=== PATIENT | male | born 1965 | race Two or more races ===

== ENCOUNTER 2019-01-15 20:26 | Inpatient (IN) | payer SELFPAY ==
[~2019-01-15] VITALS: Ht 177.8 cm; Wt 73.0 kg
[2019-01-15 20:47] LABS: BILIRUBIN,URINE NEGATIVE (NEG); CLARITY,URINE CLEAR; COLOR,URINE YELLOW; NITRITE,URINE NEGATIVE (NEG); PROTEIN,URINE 100 mg/dL (NEG-TRACE); UROBILINOGEN,URINE 0.2 mg/dL (0.2 mg/dL)
[2019-01-15 20:54] LABS: AMPHETAMINE/METHAMPHETAMINE NEG (NEG); BARBITURATES NEG (NEG); BENZODIAZEPINES NEG (NEG); CANNABINOIDS NEG (NEG); COCAINE NEG (NEG); METHADONE NEG (NEG); OPIATES NEG (NEG); PHENCYCLIDINE NEG (NEG)
[2019-01-15 21:04] LABS: BACTERIA,URINE 0 /HPF (0-FEW); WBC,URINE 0 /HPF (0-4)
[2019-01-15] MEDS ORDERED: FAMOTIDINE 20 MG/2 ML VIAL IVP ONE (21:15)
[2019-01-15] MEDS ORDERED: IV NORMAL SALINE 1000ML BAG 1,000 ML IV ONE (21:15)
[2019-01-15] MEDS ORDERED: ONDANSETRON PF 4 MG/2 ML VIAL. IV ONE (21:15)
[2019-01-15] MEDS ORDERED: KETOROLAC 30 MG/ML VIAL. IV ONE (21:15)
[2019-01-15 21:27] LABS: BASO # 0.1 x10^3/uL (0.0-0.2); BASO % 3 % (0-3); EOS # 0.1 x10^3/uL (0.0-0.7); EOS % 3 % (0-3); HEMATOCRIT 25.7 % (39.0-53.0); HEMOGLOBIN 8.5 g/dL (13.0-17.5); LYMPH # 1.6 x10^3/uL (1.0-4.8); LYMPH % 35 % (24-48); MEAN CORPUSCULAR HEMOGLOBIN 30 pg (25-35); MEAN CORPUSCULAR HGB CONC 33 g/dL (31-37); MEAN CORPUSCULAR VOLUME 92 fL (79-100); MONO # 0.4 x10^3/uL (0.0-1.1); MONO % 9 % (0-9); NEUT # 2.3 x10^3/uL (1.8-7.7); NEUT % 50 % (31-73); PLATELET COUNT 99 x10^3/uL (140-400); RED CELL DISTRIBUTION WIDTH 17.6 % (11.5-14.5); WHITE BLOOD COUNT 4.7 x10^3/uL (4.0-11.0)
[2019-01-15 21:36] LABS: CALCIUM 7.9 mg/dL (8.5-10.1); CREATININE 0.7 mg/dL (0.7-1.3); GFR 118.9; POTASSIUM 3.6 mmol/L (3.5-5.1)
[2019-01-15 21:42] LABS: ALBUMIN 2.8 g/dL (3.4-5.0); ALBUMIN/GLOBULIN RATIO 0.6 (1.0-1.7); MAGNESIUM 1.6 mg/dL (1.8-2.4); TOTAL BILIRUBIN 0.4 mg/dL (0.2-1.0); TOTAL PROTEIN 7.3 g/dL (6.4-8.2)
[2019-01-15] MEDS ORDERED: MULTIVIT INFUSN,ADULT 4,VIT K 10 ML, THIAMINE INJ 100 MG, FOLIC ACID INJ 1 MG in IV NOR... IV ONE (22:15)
[2019-01-15] MEDS ORDERED: ONDANSETRON PF 4 MG/2 ML VIAL. IV PRN (22:15)
--- NOTE | 2019-01-15 22:16 | PHYS DOC ---
Past Medical History Past Medical History: Pancreatitis Past Surgical History: Other Additional Past Surgical Histo: LEFT KNEE SURGERY Additional Information: Nonsmoker Alcohol Use: Heavy Drug Use: None Adult General Chief Complaint Chief Complaint: ABDOMINAL PAIN HPI HPI 53-year-old male presents via EMS after patient walked to the fire station reporting left upper quadrant abdominal pain. Patient reports he has had this pain for the last 3 weeks. Reports history of pancreatitis. Patient does report alcohol consumption. Reports he drinks approximately 3x 16 oz beers daily. Denies history of delirium tremens. Reports has been drinking like this for last 8 years. Denies nausea or vomiting. Denies trauma. Review of Systems Review of Systems Constitutional: Denies fever or chills Eyes: Denies redness or eye pain HENT: Denies nasal congestion or sore throat Respiratory: Denies cough or shortness of breath Cardiovascular: Denies chest pain or palpitations GI: Denies nausea or vomiting; reports abdominal pain : Denies dysuria or hematuria Musculoskeletal: Denies back pain or joint pain Integument: Denies rash or skin lesions Neurologic: Denies headache, focal weakness or sensory changes Complete systems were reviewed and found to be within normal limits, except as documented in this note. Current Medications Current Medications Current Medications Medications (Trade) Dose Ordered Sig/Marcia Start Time Stop Time Status Last Admin Dose Admin Famotidine (Pepcid Vial) 20 mg 1X ONCE 01/15/19 21:15 01/15/19 21:16 DC 01/15/19 21:50 20 MG Ketorolac Tromethamine (Toradol 30mg Vial) 15 mg 1X ONCE 01/15/19 21:15 01/15/19 21:16 DC 01/15/19 21:51 15 MG Ondansetron HCl (Zofran) 4 mg 1X ONCE 01/15/19 21:15 01/15/19 21:16 DC 01/15/19 21:50 4 MG Sodium Chloride 1,000 ml @ 1,000 mls/hr 1X ONCE 01/15/19 21:15 01/15/19 22:14 DC 01/15/19 21:49 1,000 MLS/HR Allergies Allergies Allergies Coded Allergies Type Severity Reaction Last Updated Verified No Known Drug Allergies 01/15/19 No Physical Exam Physical Exam Constitutional: Well developed, well nourished, no acute distress, non-toxic appearance HENT: Normocephalic, atraumatic, oropharynx moist Eyes: Conjunctiva normal, no discharge Neck: Normal range of motion, no tenderness, supple Cardiovascular: Heart rate normal, regular rhythm Lungs & Thorax: Bilateral breath sounds clear to auscultation, no wheezing Abdomen: Soft, LUQ tenderness Skin: Warm, dry, no erythema, no rash Back: No tenderness, no CVA tenderness Extremities: No tenderness, ROM intact, no edema Neurologic: Alert and oriented X 3, no focal deficits noted Psychologic: Affect normal, judgement normal, mood normal Current Patient Data Vital Signs Vital Signs Date Time Temp Pulse Resp B/P (MAP) Pulse Ox O2 Delivery O2 Flow Rate FiO2 01/15/19 20:29 71 16 155/90 (111) 99 Room Air 01/15/19 20:27 98.0 98.0 Lab Values Laboratory Tests Test 01/15/19 20:40 01/15/19 21:21 Urine Collection Type Unknown Urine Color Yellow Urine Clarity Clear Urine pH 6.0 Urine Specific [place] <=1.005 Urine Protein 100 mg/dL (NEG-TRACE) Urine Glucose (UA) Negative mg/dL (NEG) Urine Ketones (Stick) Negative mg/dL (NEG) Urine Blood Moderate (NEG) Urine Nitrite Negative (NEG) Urine Bilirubin Negative (NEG) Urine Urobilinogen Dipstick 0.2 mg/dL (0.2 mg/dL) Urine Leukocyte Esterase Negative (NEG) Urine RBC 3-5 /HPF (0-2) Urine WBC 0 /HPF (0-4) Urine Bacteria 0 /HPF (0-FEW) Urine Opiates Screen Neg (NEG) Urine Methadone Screen Neg (NEG) Urine Barbiturates Neg (NEG) Urine Phencyclidine Screen Neg (NEG) Urine Amphetamine/Methamphetamine Neg (NEG) Urine Benzodiazepines Screen Neg (NEG) Urine Cocaine Screen Neg (NEG) Urine Cannabinoids Screen Neg (NEG) Urine Ethyl Alcohol Pos (NEG) White Blood Count 4.7 x10^3/uL (4.0-11.0) Red Blood Count 2.80 x10^6/uL (4.30-5.70) L Hemoglobin 8.5 g/dL (13.0-17.5) L Hematocrit 25.7 % (39.0-53.0) L Mean Corpuscular Volume 92 fL (79-100) Mean Corpuscular Hemoglobin 30 pg (25-35) Mean Corpuscular Hemoglobin Concent 33 g/dL (31-37) Red Cell Distribution Width 17.6 % (11.5-14.5) H Platelet Count 99 x10^3/uL (140-400) L Neutrophils (%) (Auto) 50 % (31-73) Lymphocytes (%) (Auto) 35 % (24-48) Monocytes (%) (Auto) 9 % (0-9) Eosinophils (%) (Auto) 3 % (0-3) Basophils (%) (Auto) 3 % (0-3) Neutrophils # (Auto) 2.3 x10^3/uL (1.8-7.7) Lymphocytes # (Auto) 1.6 x10^3/uL (1.0-4.8) Monocytes # (Auto) 0.4 x10^3/uL (0.0-1.1) Eosinophils # (Auto) 0.1 x10^3/uL (0.0-0.7) Basophils # (Auto) 0.1 x10^3/uL (0.0-0.2) Sodium Level 144 mmol/L (136-145) Potassium Level 3.6 mmol/L (3.5-5.1) Chloride Level 109 mmol/L (98-107) H Carbon Dioxide Level 21 mmol/L (21-32) Anion Gap 14 (6-14) Blood Urea Nitrogen 13 mg/dL (8-26) Creatinine 0.7 mg/dL (0.7-1.3) Estimated GFR (Cockcroft-Gault) 118.9 BUN/Creatinine Ratio 19 (6-20) Glucose Level 108 mg/dL (70-99) H Calcium Level 7.9 mg/dL (8.5-10.1) L Magnesium Level 1.6 mg/dL (1.8-2.4) L Total Bilirubin 0.4 mg/dL (0.2-1.0) Aspartate Amino Transferase (AST) 33 U/L (15-37) Alanine Aminotransferase (ALT) 20 U/L (16-63) Alkaline Phosphatase 122 U/L (46-116) H Total Protein 7.3 g/dL (6.4-8.2) Albumin 2.8 g/dL (3.4-5.0) L Albumin/Globulin Ratio 0.6 (1.0-1.7) L Lipase 1303 U/L (73-393) H Ethyl Alcohol Level 400 mg/dL (0-10) *H Laboratory Tests 01/15/19 21:21 Laboratory Tests 01/15/19 21:21 EKG EKG @2048 NSR at 66bpm, NO ST elevation, QRS 120ms, QT/QTc 428/451ms Radiology/Procedures Radiology/Procedures [] Course & Med Decision Making Course & Med Decision Making Pertinent Lab studies reviewed. (See chart for details) Patient presents with left upper quadrant abdominal pain which is been ongoing for the last 3 weeks. Denies any nausea or vomiting. Patient does report history of chronic alcohol abuse. Labs obtained and posted to chart. Lipase significantly elevated. Alcohol 400. Pain addressed. IV fluid hydration provided. Banana bag also given. Patient requiring admission for further evaluation and treatment. Discussed with Dr. Melgar (hospitalist) who is in agreement with admission. Discussed findings and plan with patient, who acknowledges understanding and agreement. Dragon Disclaimer Dragon Disclaimer This electronic medical record was generated, in whole or in part, using a voice recognition dictation system. Departure Departure Impression: Primary Impression: Pancreatitis Additional Impression: Alcohol abuse Disposition: ADMITTED INPATIENT Admitting Physician: NETTIE Fournier) Condition: STABLE Referrals: NO PCP (PCP) Problem Qualifiers Primary Impression: Pancreatitis Chronicity: acute Pancreatitis type: alcohol induced Acute pancreatitis complication: unspecified Qualified Codes: K85.20 - Alcohol induced acute pancreatitis without necrosis or infection JEFF PAULINO DO Jan 15, 2019 22:16
--- NOTE | 2019-01-15 22:35 | EKG ---
[facility] [address] [place] [address] Test Date: 2019-01-15 Test Time: 20:48:36 Pat Name: SOBEIDA ROMAN Department: Room: Gender: M Shipping/Receiving Manager: : [id number] Requested By: JEFF PAULINO Order Number: [id number] Reading MD: Measurements Intervals [place] Rate: 66 P: 54 MS: 182 QRS: -14 QRSD: 120 T: 39 QT: 428 QTc: 451 Interpretive Statements SINUS RHYTHM LEFTWARD AXIS NO SPECIFIC ECG ABNORMALITIES RI6.01 No previous ECG available for comparison
[2019-01-15] MEDS: fentaNYL PF VIAL 100 MCG/2 ML VIAL IV PRN (22:40)
[2019-01-15 23:30] VITALS: BP 155/77
[2019-01-16] MEDS: IV NORMAL SALINE 1000ML BAG 1,000 ML IV SCH ×3 (00:23→16:15)
[2019-01-16] MEDS: fentaNYL PF VIAL 100 MCG/2 ML VIAL IV PRN ×5 (00:35→20:40)
[2019-01-16 03:16] VITALS: BP 142/78
--- NOTE | 2019-01-16 04:38 | NUR ---
Pt admitted during the noc. Pt states wanting to go by Fab however pt admitted before under another name; Eric Anderson. Pt states his full name is Fab Reyes Luis Rolons. Pt states having 2 names. Pt continues with complaints of epigastric pain and wanting to eat. Pt informed of NPO status at this time and verbalizes understanding. Pt informed of IV pain medication at this time to control his pain. Pt oriented to room and surroundings. No further complaints at this time.
[2019-01-16 07:47] VITALS: BP 119/62
[2019-01-16] MEDS ORDERED: ONDANSETRON PF 4 MG/2 ML VIAL. IV PRN (08:45)
[2019-01-16] MEDS ORDERED: LABETALOL 20 MG/4 ML DISP.SYRIN. IVP PRN (08:45)
[2019-01-16] MEDS ORDERED: PANTOPRAZOLE IV PUSH 40 MG VIAL. IVP SCH ×2 (09:00→16:30)
[2019-01-16] MEDS ORDERED: MAGNESIUM SULFATE 2GM 50 ML IV ONE (09:00)
--- NOTE | 2019-01-16 10:33 | NUR ---
SS following for discharge planning. SS reviewed pt chart. Pt is self pay pt. HCFS following for self pay status. Pt is from home and is currently on room air. No discharge needs noted at this time. SS will continue to follow for discharge planning.
--- NOTE | 2019-01-16 11:33 | PDOC1 ---
History and Physical Date of Admission Date of Admission DATE: 01/16/19 TIME: 11:27 Identification/Chief Complaint Chief Complaint abd pain, and now BRBPR Source Source: Caregiver, Chart review, Patient History of Present Illness History of Present Illness 53-year-old male, he has the wrong name on file this is Mr. Eric Anderson, very well known to us. Comes in again for another alcoholic pancreatitis episode with alcohol levels 400, low hemoglobin, low electrolytes magnesium 1.6 and calcium 7.9 and now called by RN because of bright red blood per rectum. His lipase is 1303. He still drinks alcohol. Maybe 1 or 2 months ago he had a significant ICU stay because of bright red blood per rectum hemodynamically unstable needing IR intervention stat, egd etc. Supposed to be on Carafate PPI and maybe Aldactone? I still am waiting for home meds. I am consulting GI urgent, check an H&H now Keep nothing by mouth, keep liquids running see the protocol etc. Discussed with RN NO CT abd yet NOn toxic appearing and still can communicate with me Past Medical History GI: GERD, GI bleed, Gastritis Past Surgical History Past Surgical History: Other (RT knee Ia nd D, IR EGD intervention for signif GIB) Family History Family History: No Significant Social History Smoke: No ALCOHOL: heavy Drugs: None Current Problem List Problem List Problems Medical Problems: (1) Alcohol abuse Status: Acute Current Medications Current Medications Current Medications Ondansetron HCl (Zofran) 4 mg 1X ONCE IV Last administered on 01/15/19at 21:50; Start 01/15/19 at 21:15; Stop 01/15/19 at 21:16; Status DC Famotidine (Pepcid Vial) 20 mg 1X ONCE IVP Last administered on 01/15/19at 21:50; Start 01/15/19 at 21:15; Stop 01/15/19 at 21:16; Status DC Ketorolac Tromethamine (Toradol 30mg Vial) 15 mg 1X ONCE IV Last administered on 01/15/19at 21:51; Start 01/15/19 at 21:15; Stop 01/15/19 at 21:16; Status DC Sodium Chloride 1,000 ml @ 1,000 mls/hr 1X ONCE IV Last administered on 01/15/19at 21:49; Start 01/15/19 at 21:15; Stop 01/15/19 at 22:14; Status DC Multivitamins 10 ml/Thiamine HCl 100 mg/Folic Acid 1 mg/Sodium Chloride 1,011.2 ml @ 1,000.088 mls/hr 1X ONCE IV Last administered on 01/15/19at 22:10; Start 01/15/19 at 22:15; Stop 01/15/19 at 23:15; Status DC Ondansetron HCl (Zofran) 4 mg PRN Q8HRS PRN IV NAUSEA/VOMITING; Start 01/15/19 at 22:15; Stop 01/16/19 at 08:38; Status DC Fentanyl Citrate (Fentanyl 2ml Vial) 50 mcg PRN Q2HR PRN IV PAIN Last adminis tered on 01/16/19at 07:59; Start 01/15/19 at 22:15 Sodium Chloride 1,000 ml @ 125 mls/hr Q8H IV Last administered on 01/16/19at 08:03; Start 01/15/19 at 22:15; Stop 01/16/19 at 22:14 Lorazepam (Ativan Inj) 1 mg PRN Q1HR PRN IV For CIWA 8-14; Start 01/15/19 at 22:15 Lorazepam (Ativan Inj) 2 mg PRN Q1HR PRN IV For CIWA 15 or greater; Start 01/15/19 at 22:15 Ondansetron HCl (Zofran) 4 mg PRN Q6HRS PRN IV NAUSEA/VOMITING; Start 01/16/19 at 08:45 Pantoprazole Sodium (PROTONIX VIAL for IV PUSH) 40 mg DAILYAC IVP Last administered on 01/16/19at 10:46; Start 01/16/19 at 09:00 Magnesium Sulfate 50 ml @ 25 mls/hr 1X ONCE IV Last administered on 01/16/19at 10:46; Start 01/16/19 at 09:00; Stop 01/16/19 at 10:59; Status DC Labetalol HCl (Normodyne Iv Push) 10 mg PRN Q2HR PRN IVP HYPERTENSION; Start 01/16/19 at 08:45 Allergies Allergies: Coded Allergies: No Known Drug Allergies (Unverified , 01/15/19) ROS Review of System POS for Red blood per rectum, nausea, no emesis, diarrhea, no fevers, no cp, no soa, rest 14 pt neg Physical Exam General: Alert, Oriented X3, Cooperative, No acute distress HEENT: Atraumatic, PERRLA, EOMI Lungs: Clear to auscultation, Normal air movement Heart: S1S2, RRR, no thrills, no rubs, no gallops, no murmurs Cardiovascular: S1, S2 Abdomen: Normal bowel sounds, Soft, No tenderness, No hepatosplenomegaly, No masses Male Genitals Exam: normal genitalia, normal prostate Rectal Exam: not examined PELVIC: Nml ext genitalia Extremities: No clubbing, No cyanosis, No edema, Normal pulses, No tenderness/swelling Skin: No rashes, No breakdown, No significant lesion Neuro: Normal gait, Normal speech, Strength at 5/5 X4 ext, Normal tone, Sensation intact, Cranial nerves 3-12 NL, Reflexes 2+ Psych/Mental Status: Mental status NL, Mood NL Vitals Vitals Vital Signs Date Time Temp Pulse Resp B/P (MAP) Pulse Ox O2 Delivery O2 Flow Rate FiO2 01/16/19 08:30 18 95 Room Air 01/16/19 07:47 97.9 64 119/62 (81) 97.9 Labs Labs Laboratory Tests Test 01/15/19 20:40 01/15/19 21:21 Urine Collection Type Unknown Urine Color Yellow Urine Clarity Clear Urine pH 6.0 Urine Specific [place] <=1.005 Urine Protein 100 mg/dL (NEG-TRACE) Urine Glucose (UA) Negative mg/dL (NEG) Urine Ketones (Stick) Negative mg/dL (NEG) Urine Blood Moderate (NEG) Urine Nitrite Negative (NEG) Urine Bilirubin Negative (NEG) Urine Urobilinogen Dipstick 0.2 mg/dL (0.2 mg/dL) Urine Leukocyte Esterase Negative (NEG) Urine RBC 3-5 /HPF (0-2) Urine WBC 0 /HPF (0-4) Urine Bacteria 0 /HPF (0-FEW) Urine Opiates Screen Neg (NEG) Urine Methadone Screen Neg (NEG) Urine Barbiturates Neg (NEG) Urine Phencyclidine Screen Neg (NEG) Urine Amphetamine/Methamphetamine Neg (NEG) Urine Benzodiazepines Screen Neg (NEG) Urine Cocaine Screen Neg (NEG) Urine Cannabinoids Screen Neg (NEG) Urine Ethyl Alcohol Pos (NEG) White Blood Count 4.7 x10^3/uL (4.0-11.0) Red Blood Count 2.80 x10^6/uL (4.30-5.70) Hemoglobin 8.5 g/dL (13.0-17.5) Hematocrit 25.7 % (39.0-53.0) Mean Corpuscular Volume 92 fL (79-100) Mean Corpuscular Hemoglobin 30 pg (25-35) Mean Corpuscular Hemoglobin Concent 33 g/dL (31-37) Red Cell Distribution Width 17.6 % (11.5-14.5) Platelet Count 99 x10^3/uL (140-400) Neutrophils (%) (Auto) 50 % (31-73) Lymphocytes (%) (Auto) 35 % (24-48) Monocytes (%) (Auto) 9 % (0-9) Eosinophils (%) (Auto) 3 % (0-3) Basophils (%) (Auto) 3 % (0-3) Neutrophils # (Auto) 2.3 x10^3/uL (1.8-7.7) Lymphocytes # (Auto) 1.6 x10^3/uL (1.0-4.8) Monocytes # (Auto) 0.4 x10^3/uL (0.0-1.1) Eosinophils # (Auto) 0.1 x10^3/uL (0.0-0.7) Basophils # (Auto) 0.1 x10^3/uL (0.0-0.2) Sodium Level 144 mmol/L (136-145) Potassium Level 3.6 mmol/L (3.5-5.1) Chloride Level 109 mmol/L (98-107) Carbon Dioxide Level 21 mmol/L (21-32) Anion Gap 14 (6-14) Blood Urea Nitrogen 13 mg/dL (8-26) Creatinine 0.7 mg/dL (0.7-1.3) Estimated GFR (Cockcroft-Gault) 118.9 BUN/Creatinine Ratio 19 (6-20) Glucose Level 108 mg/dL (70-99) Calcium Level 7.9 mg/dL (8.5-10.1) Magnesium Level 1.6 mg/dL (1.8-2.4) Total Bilirubin 0.4 mg/dL (0.2-1.0) Aspartate Amino Transf (AST/SGOT) 33 U/L (15-37) Alanine Aminotransferase (ALT/SGPT) 20 U/L (16-63) Alkaline Phosphatase 122 U/L (46-116) Total Protein 7.3 g/dL (6.4-8.2) Albumin 2.8 g/dL (3.4-5.0) Albumin/Globulin Ratio 0.6 (1.0-1.7) Lipase 1303 U/L (73-393) Ethyl Alcohol Level 400 mg/dL (0-10) Laboratory Tests Test 01/15/19 20:40 01/15/19 21:21 Urine Collection Type Unknown Urine Color Yellow Urine Clarity Clear Urine pH 6.0 Urine Specific [place] <=1.005 Urine Protein 100 mg/dL (NEG-TRACE) Urine Glucose (UA) Negative mg/dL (NEG) Urine Ketones (Stick) Negative mg/dL (NEG) Urine Blood Moderate (NEG) Urine Nitrite Negative (NEG) Urine Bilirubin Negative (NEG) Urine Urobilinogen Dipstick 0.2 mg/dL (0.2 mg/dL) Urine Leukocyte Esterase Negative (NEG) Urine RBC 3-5 /HPF (0-2) Urine WBC 0 /HPF (0-4) Urine Bacteria 0 /HPF (0-FEW) Urine Opiates Screen Neg (NEG) Urine Methadone Screen Neg (NEG) Urine Barbiturates Neg (NEG) Urine Phencyclidine Screen Neg (NEG) Urine Amphetamine/Methamphetamine Neg (NEG) Urine Benzodiazepines Screen Neg (NEG) Urine Cocaine Screen Neg (NEG) Urine Cannabinoids Screen Neg (NEG) Urine Ethyl Alcohol Pos (NEG) White Blood Count 4.7 x10^3/uL (4.0-11.0) Red Blood Count 2.80 x10^6/uL (4.30-5.70) Hemoglobin 8.5 g/dL (13.0-17.5) Hematocrit 25.7 % (39.0-53.0) Mean Corpuscular Volume 92 fL (79-100) Mean Corpuscular Hemoglobin 30 pg (25-35) Mean Corpuscular Hemoglobin Concent 33 g/dL (31-37) Red Cell Distribution Width 17.6 % (11.5-14.5) Platelet Count 99 x10^3/uL (140-400) Neutrophils (%) (Auto) 50 % (31-73) Lymphocytes (%) (Auto) 35 % (24-48) Monocytes (%) (Auto) 9 % (0-9) Eosinophils (%) (Auto) 3 % (0-3) Basophils (%) (Auto) 3 % (0-3) Neutrophils # (Auto) 2.3 x10^3/uL (1.8-7.7) Lymphocytes # (Auto) 1.6 x10^3/uL (1.0-4.8) Monocytes # (Auto) 0.4 x10^3/uL (0.0-1.1) Eosinophils # (Auto) 0.1 x10^3/uL (0.0-0.7) Basophils # (Auto) 0.1 x10^3/uL (0.0-0.2) Sodium Level 144 mmol/L (136-145) Potassium Level 3.6 mmol/L (3.5-5.1) Chloride Level 109 mmol/L (98-107) Carbon Dioxide Level 21 mmol/L (21-32) Anion Gap 14 (6-14) Blood Urea Nitrogen 13 mg/dL (8-26) Creatinine 0.7 mg/dL (0.7-1.3) Estimated GFR (Cockcroft-Gault) 118.9 BUN/Creatinine Ratio 19 (6-20) Glucose Level 108 mg/dL (70-99) Calcium Level 7.9 mg/dL (8.5-10.1) Magnesium Level 1.6 mg/dL (1.8-2.4) Total Bilirubin 0.4 mg/dL (0.2-1.0) Aspartate Amino Transf (AST/SGOT) 33 U/L (15-37) Alanine Aminotransferase (ALT/SGPT) 20 U/L (16-63) Alkaline Phosphatase 122 U/L (46-116) Total Protein 7.3 g/dL (6.4-8.2) Albumin 2.8 g/dL (3.4-5.0) Albumin/Globulin Ratio 0.6 (1.0-1.7) Lipase 1303 U/L (73-393) Ethyl Alcohol Level 400 mg/dL (0-10) VTE Prophylaxis Ordered VTE Prophylaxis Devices: Contraindicated VTE Pharmacological Prophylaxi: Contraindicated Assessment/Plan Assessment/Plan Bright red blood per rectum History of massive GI bleeding stat EGD, stat IR 1-2 months ago here at [facility] Alcoholic liver disease Elevated alcohol levels 400s on admit Alcoholic pancreatitis with lipase 1303 Hypomagnesemia 1.6 Chronic thrombocytopenia Hypocalcemia/normocalcemia in the background of low albumin Plan:keep nothing by mouth, PPI twice a day Keep IVF Carafate by mouth once a day Stat GI consult H&H now CBC and BMP tomorrow Replace mag Keep telemetry Continue CIWA protocol dw with SOHAIL TURCIOS MD Jan 16, 2019 11:32
[2019-01-16 11:45] VITALS: BP 137/73
[2019-01-16 12:39] LABS: HEMATOCRIT 26.5 % (39.0-53.0); HEMOGLOBIN 8.7 g/dL (13.0-17.5)
--- NOTE | 2019-01-16 12:41 | PDOC2 ---
GI CONSULT Reason For Consult: BRBPR HPI: HPI: Has another chart - [id number]. 53 y/o male who is frequently admitted. Currently intoxicated and giggling. Apparently to ER via EMS after walking to a fire station and reporting abd pain. GI history as below. Current concern is bright red blood in the toilet - he says occurred after stooling and was not present prior to admission. Also c/o upper abd pain. Denies n/v, melena, and hematemesis. H/o alcohol abuse, anemia, encephalopathy, and pancreatitis. He wants to eat. Takes no meds at home. "Three beers." Past workup: CT A/P 09/01/18: corrugated surface contour of the liver which may be seen with cirrhosis, normal spleen, ascites w/ fluid around the GB which also may be secondary to passive venous congestion of the liver related to cirrhosis, diffusely enlarged pancreas, peripancreatic inflammatory change and mesenteric edema is seen, diffuse wall thickening of the stomach and duodenum and segmental wall thickening of the colon (possibly secondary to gastroenteritis and colitis or secondary to pancreatitis or related to edema from cirrhosis and ascites). Head CT 09/16/18: no acute intracranial hemorrhage, moderate generalized cerebral volume loss, low-attenuation in the periventricular white matter is suggestive of chronic small vessel ischemic changes, metallic densities along the right zygoma and right frontal scalp may represent sequela of prior trauma. CT A/P 09/19/18: no acute abnormality. Abd US 09/02/18: hepatic contour irregularity compatible with hepatic cirrhosis, diffuse gallbladder wall thickening (related to liver disease, hypoproteinemia or cholecystitis), no sonographic evidence of cholelithiasis, and ascites EGD 09/03/18: normal esophagus w/o varices, gastritis and recent bleeding but no ulcers, normal duodenum. GES 09/08/18: no delay in gastric emptying is seen. CT A/P 11/02/18: c/w cirrhosis w/ portal hypertension and varices, mild fluid- filled loops of small bowel suggesting an ileus, mildly enlarged pancreas, pericholecystic fluid, may be related to the cirrhosis. Labs 08/2018: Negative Hepatitis A, B, and C. Negative HIV. Iron studies c/w ACD. Normal B12 and retic. Mildly elevated ammonia noted in the past. Peripheral smear 08/2018: mild leukopenia and absolute neutropenia, moderate normochromic normocytic anemia, moderate thrombocytopenia. Bone Marrow Biopsy 08/2018: variable normocellular to mildly hypocellular marrow showing trilineage hematopoiesis, no significant dyspoiesis, and a mild polyclonal plasmacytosis, absent iron stores. The cytopenias in this case are most likely due to cirrhosis and pancreatitis. CT A/P 11/02/18: cirrhosis and portal hypertension w/ varices, mild fluid-filled loops of small bowel suggesting an ileus, mildly enlarged pancreas, pericholecystic fluid. CT A/P 11/15/18: hepatic cirrhosis with upper abdominal collaterals and gastroesophageal varices, gallbladder wall thickening/edema is nonspecific. EGD 11/17/18: w/o varices but w/ mother of all Laverne-Baltazar tears requiring IR embolization. Abd US 12/11/18: sludge noted in the gallbladder with thickening of the gallbladder wall, no definite gallstones, coarse liver consistent with cirrhosis, CBD 3mm. CT A/P 01/08/19: cirrhosis with evidence of portal venous hypertension, no peripancreatic mass. PMH: PMH: right knee hematoma evacuation/I&D FH: Family History: No pertinent hx Social History: ALCOHOL: heavy ROS: GEN: Denies fevers, chills, sweats HEENT: Denies blurred vision, sore throat CV: Denies chest pain RESP: Denies shortness of air, cough GI: Per HPI : Denies hematuria, dysuria ENDO: Denies weight changes NEURO: Denies confusion, dizziness MSK: Denies weakness, joint pain/swelling SKIN: Denies jaundice, pruritus Vitals: Vitals: Vital Signs Date Time Temp Pulse Resp B/P (MAP) Pulse Ox O2 Delivery O2 Flow Rate FiO2 01/16/19 11:45 98.2 66 18 137/73 (94) 98 Room Air 98.2 Labs: Labs: Laboratory Tests Test 01/15/19 20:40 01/15/19 21:21 Urine Collection Type Unknown Urine Color Yellow Urine Clarity Clear Urine pH 6.0 Urine Specific [place] <=1.005 Urine Protein 100 mg/dL (NEG-TRACE) Urine Glucose (UA) Negative mg/dL (NEG) Urine Ketones (Stick) Negative mg/dL (NEG) Urine Blood Moderate (NEG) Urine Nitrite Negative (NEG) Urine Bilirubin Negative (NEG) Urine Urobilinogen Dipstick 0.2 mg/dL (0.2 mg/dL) Urine Leukocyte Esterase Negative (NEG) Urine RBC 3-5 /HPF (0-2) Urine WBC 0 /HPF (0-4) Urine Bacteria 0 /HPF (0-FEW) Urine Opiates Screen Neg (NEG) Urine Methadone Screen Neg (NEG) Urine Barbiturates Neg (NEG) Urine Phencyclidine Screen Neg (NEG) Urine Amphetamine/Methamphetamine Neg (NEG) Urine Benzodiazepines Screen Neg (NEG) Urine Cocaine Screen Neg (NEG) Urine Cannabinoids Screen Neg (NEG) Urine Ethyl Alcohol Pos (NEG) White Blood Count 4.7 x10^3/uL (4.0-11.0) Red Blood Count 2.80 x10^6/uL (4.30-5.70) Hemoglobin 8.5 g/dL (13.0-17.5) Hematocrit 25.7 % (39.0-53.0) Mean Corpuscular Volume 92 fL (79-100) Mean Corpuscular Hemoglobin 30 pg (25-35) Mean Corpuscular Hemoglobin Concent 33 g/dL (31-37) Red Cell Distribution Width 17.6 % (11.5-14.5) Platelet Count 99 x10^3/uL (140-400) Neutrophils (%) (Auto) 50 % (31-73) Lymphocytes (%) (Auto) 35 % (24-48) Monocytes (%) (Auto) 9 % (0-9) Eosinophils (%) (Auto) 3 % (0-3) Basophils (%) (Auto) 3 % (0-3) Neutrophils # (Auto) 2.3 x10^3/uL (1.8-7.7) Lymphocytes # (Auto) 1.6 x10^3/uL (1.0-4.8) Monocytes # (Auto) 0.4 x10^3/uL (0.0-1.1) Eosinophils # (Auto) 0.1 x10^3/uL (0.0-0.7) Basophils # (Auto) 0.1 x10^3/uL (0.0-0.2) Sodium Level 144 mmol/L (136-145) Potassium Level 3.6 mmol/L (3.5-5.1) Chloride Level 109 mmol/L (98-107) Carbon Dioxide Level 21 mmol/L (21-32) Anion Gap 14 (6-14) Blood Urea Nitrogen 13 mg/dL (8-26) Creatinine 0.7 mg/dL (0.7-1.3) Estimated GFR (Cockcroft-Gault) 118.9 BUN/Creatinine Ratio 19 (6-20) Glucose Level 108 mg/dL (70-99) Calcium Level 7.9 mg/dL (8.5-10.1) Magnesium Level 1.6 mg/dL (1.8-2.4) Total Bilirubin 0.4 mg/dL (0.2-1.0) Aspartate Amino Transf (AST/SGOT) 33 U/L (15-37) Alanine Aminotransferase (ALT/SGPT) 20 U/L (16-63) Alkaline Phosphatase 122 U/L (46-116) Total Protein 7.3 g/dL (6.4-8.2) Albumin 2.8 g/dL (3.4-5.0) Albumin/Globulin Ratio 0.6 (1.0-1.7) Lipase 1303 U/L (73-393) Ethyl Alcohol Level 400 mg/dL (0-10) Allergies: Coded Allergies: No Known Drug Allergies (Unverified , 01/15/19) Medications: Current Medications Medications (Trade) Dose Ordered Sig/Marcia Route PRN Reason Start Time Stop Time Status Last Admin Dose Admin Ondansetron HCl (Zofran) 4 mg 1X ONCE IV 01/15/19 21:15 01/15/19 21:16 DC 01/15/19 21:50 Famotidine (Pepcid Vial) 20 mg 1X ONCE IVP 01/15/19 21:15 01/15/19 21:16 DC 01/15/19 21:50 Ketorolac Tromethamine (Toradol 30mg Vial) 15 mg 1X ONCE IV 01/15/19 21:15 01/15/19 21:16 DC 01/15/19 21:51 Sodium Chloride 1,000 ml @ 1,000 mls/hr 1X ONCE IV 01/15/19 21:15 01/15/19 22:14 DC 01/15/19 21:49 Multivitamins 10 ml/Thiamine HCl 100 mg/Folic Acid 1 mg/Sodium Chloride 1,011.2 ml @ 1,000.088 mls/hr 1X ONCE IV 01/15/19 22:15 01/15/19 23:15 DC 01/15/19 22:10 Fentanyl Citrate (Fentanyl 2ml Vial) 50 mcg PRN Q2HR PRN IV PAIN 01/15/19 22:15 01/16/19 07:59 Sodium Chloride 1,000 ml @ 125 mls/hr Q8H IV 01/15/19 22:15 01/16/19 22:14 01/16/19 08:03 Pantoprazole Sodium (PROTONIX VIAL for IV PUSH) 40 mg DAILYAC IVP 01/16/19 09:00 01/16/19 11:27 DC 01/16/19 10:46 Magnesium Sulfate 50 ml @ 25 mls/hr 1X ONCE IV 01/16/19 09:00 01/16/19 10:59 DC 01/16/19 10:46 Imaging: Imaging: - PE: GEN: NAD, smiling, waves to me, laughing HEENT: Atraumatic, PERRL LUNGS: CTAB HEART: RRR ABD: NABS, epigastric to RUQ tenderness EXTREMITY: No edema SKIN: No rashes, no jaundice NEURO/PSYCH: A & O �3 A/P: A/P: Hematochezia Alcohol intoxication Chronic anemia - Hgb 8.3 when last discharged, 8.7 now Chronic abd pain Recurrent pancreatitis -- Back again w/ chronic issues. Extensive GI workup this year as above and in other chart. Ice chips okay. IV PPI ordered. Observe for bleeding. Hgb stable. Will review need for abd imaging w/ Dr. Pavon. MARITZA HORNER Jan 16, 2019 12:41
[2019-01-16] MEDS: SUCRALFATE 1 GM TABLET. PO SCH ×3 (13:41→20:39)
[2019-01-16 15:18] VITALS: BP 143/80
[2019-01-16 19:46] VITALS: BP 151/74
[2019-01-16 23:18] VITALS: BP 140/75
[2019-01-17] MEDS: fentaNYL PF VIAL 100 MCG/2 ML VIAL IV PRN ×4 (02:30→16:25)
[2019-01-17 03:08] VITALS: BP 133/61
[2019-01-17 04:47] LABS: BASO # 0.1 x10^3/uL (0.0-0.2); BASO % 3 % (0-3); EOS # 0.1 x10^3/uL (0.0-0.7); EOS % 3 % (0-3); HEMATOCRIT 22.6 % (39.0-53.0); HEMOGLOBIN 7.5 g/dL (13.0-17.5); LYMPH # 0.6 x10^3/uL (1.0-4.8); LYMPH % 24 % (24-48); MEAN CORPUSCULAR HEMOGLOBIN 30 pg (25-35); MEAN CORPUSCULAR HGB CONC 33 g/dL (31-37); MEAN CORPUSCULAR VOLUME 92 fL (79-100); MONO # 0.4 x10^3/uL (0.0-1.1); MONO % 15 % (0-9); NEUT # 1.5 x10^3/uL (1.8-7.7); NEUT % 55 % (31-73); PLATELET COUNT 54 x10^3/uL (140-400); RED BLOOD COUNT 2.47 x10^6/uL (4.30-5.70); RED CELL DISTRIBUTION WIDTH 17.1 % (11.5-14.5); WHITE BLOOD COUNT 2.6 x10^3/uL (4.0-11.0)
[2019-01-17 07:00] VITALS: BP 139/71
[2019-01-17] MEDS: SUCRALFATE 1 GM TABLET. PO SCH ×4 (08:57→20:14)
[2019-01-17] MEDS ORDERED: MAGNESIUM SULFATE 2GM 50 ML IV ONE (10:00)
[2019-01-17] MEDS: PANTOPRAZOLE 40 MG TABLET.DR. PO SCH ×2 (10:09→16:30)
--- NOTE | 2019-01-17 10:14 | PDOC ---
PROGRESS NOTES Chief Complaint Chief Complaint Bright red blood per rectum History of massive GI bleeding stat EGD, stat IR 1-2 months ago here at [facility] Alcoholic liver disease Elevated alcohol levels 400s on admit Alcoholic pancreatitis with lipase 1303 on admit Hypomagnesemia 1.6 Chronic thrombocytopenia 50s-70s Hypocalcemia/normocalcemia in the background of low albumin History of Present Illness History of Present Illness Lipase down to 600 from 1400 on admit Magnesium still 1.7 despite IV replacement yesterday Hemoglobin dropped to 7.5, platelets down to 59 So far some bright red blood per rectum last night but none this morning I ordered a liquid diet-he ate everything Plan : replace magnesium again Check CBC again tomorrow and later today Watch out for bleeding Mag 2 g now and recheck tomorrow Okay for diet Check alcohol levels-was 400s 2 days ago PT OT when able Keep on telemetry Vitals Vitals Vital Signs Date Time Temp Pulse Resp B/P (MAP) Pulse Ox O2 Delivery O2 Flow Rate FiO2 01/17/19 09:45 Room Air 01/17/19 08:58 97 01/17/19 07:00 97.9 62 18 139/71 (93) 97.9 Physical Exam General: Alert, Oriented X3, Cooperative, No acute distress Heart: Regular rate, Normal S1, Normal S2 Lungs: Clear Abdomen: Normal bowel sounds, Soft, No tenderness, No hepatosplenomegaly, No masses Extremities: No clubbing, No cyanosis, No edema, Normal pulses, No tenderness/swelling Skin: No rashes, No breakdown, No significant lesion Labs LABS Laboratory Tests Test 01/16/19 11:50 01/17/19 04:15 Hemoglobin 8.7 g/dL (13.0-17.5) 7.5 g/dL (13.0-17.5) Hematocrit 26.5 % (39.0-53.0) 22.6 % (39.0-53.0) Mean Corpuscular Hemoglobin Concent 33 g/dL (31-37) 33 g/dL (31-37) Lipase 750 U/L (73-393) 676 U/L (73-393) White Blood Count 2.6 x10^3/uL (4.0-11.0) Red Blood Count 2.47 x10^6/uL (4.30-5.70) Mean Corpuscular Volume 92 fL (79-100) Mean Corpuscular Hemoglobin 30 pg (25-35) Red Cell Distribution Width 17.1 % (11.5-14.5) Platelet Count 54 x10^3/uL (140-400) Neutrophils (%) (Auto) 55 % (31-73) Lymphocytes (%) (Auto) 24 % (24-48) Monocytes (%) (Auto) 15 % (0-9) Eosinophils (%) (Auto) 3 % (0-3) Basophils (%) (Auto) 3 % (0-3) Neutrophils # (Auto) 1.5 x10^3/uL (1.8-7.7) Lymphocytes # (Auto) 0.6 x10^3/uL (1.0-4.8) Monocytes # (Auto) 0.4 x10^3/uL (0.0-1.1) Eosinophils # (Auto) 0.1 x10^3/uL (0.0-0.7) Basophils # (Auto) 0.1 x10^3/uL (0.0-0.2) Magnesium Level 1.7 mg/dL (1.8-2.4) Ethyl Alcohol Level < 10 mg/dL (0-10) Review of Systems Review of Systems bright red blood per rectum, weak, no chest pain, no SOA, and the rest of ROS 14 point negative Assessment and Plan Assessmemt and Plan Problems Medical Problems: (1) Alcohol abuse Status: Acute Comment Review of Relevant I have reviewed the following items chayito (where applicable) has been applied. Labs Laboratory Tests Test 01/15/19 20:40 01/15/19 21:21 01/16/19 11:50 01/17/19 04:15 Urine Collection Type Unknown Urine Color Yellow Urine Clarity Clear Urine pH 6.0 Urine Specific [place] <=1.005 Urine Protein 100 mg/dL (NEG-TRACE) Urine Glucose (UA) Negative mg/dL (NEG) Urine Ketones (Stick) Negative mg/dL (NEG) Urine Blood Moderate (NEG) Urine Nitrite Negative (NEG) Urine Bilirubin Negative (NEG) Urine Urobilinogen Dipstick 0.2 mg/dL (0.2 mg/dL) Urine Leukocyte Esterase Negative (NEG) Urine RBC 3-5 /HPF (0-2) Urine WBC 0 /HPF (0-4) Urine Bacteria 0 /HPF (0-FEW) Urine Opiates Screen Neg (NEG) Urine Methadone Screen Neg (NEG) Urine Barbiturates Neg (NEG) Urine Phencyclidine Screen Neg (NEG) Urine Amphetamine/Methamphetamine Neg (NEG) Urine Benzodiazepines Screen Neg (NEG) Urine Cocaine Screen Neg (NEG) Urine Cannabinoids Screen Neg (NEG) Urine Ethyl Alcohol Pos (NEG) White Blood Count 4.7 x10^3/uL (4.0-11.0) 2.6 x10^3/uL (4.0-11.0) Red Blood Count 2.80 x10^6/uL (4.30-5.70) 2.47 x10^6/uL (4.30-5.70) Hemoglobin 8.5 g/dL (13.0-17.5) 8.7 g/dL (13.0-17.5) 7.5 g/dL (13.0-17.5) Hematocrit 25.7 % (39.0-53.0) 26.5 % (39.0-53.0) 22.6 % (39.0-53.0) Mean Corpuscular Volume 92 fL (79-100) 92 fL (79-100) Mean Corpuscular Hemoglobin 30 pg (25-35) 30 pg (25-35) Mean Corpuscular Hemoglobin Concent 33 g/dL (31-37) 33 g/dL (31-37) 33 g/dL (31-37) Red Cell Distribution Width 17.6 % (11.5-14.5) 17.1 % (11.5-14.5) Platelet Count 99 x10^3/uL (140-400) 54 x10^3/uL (140-400) Neutrophils (%) (Auto) 50 % (31-73) 55 % (31-73) Lymphocytes (%) (Auto) 35 % (24-48) 24 % (24-48) Monocytes (%) (Auto) 9 % (0-9) 15 % (0-9) Eosinophils (%) (Auto) 3 % (0-3) 3 % (0-3) Basophils (%) (Auto) 3 % (0-3) 3 % (0-3) Neutrophils # (Auto) 2.3 x10^3/uL (1.8-7.7) 1.5 x10^3/uL (1.8-7.7) Lymphocytes # (Auto) 1.6 x10^3/uL (1.0-4.8) 0.6 x10^3/uL (1.0-4.8) Monocytes # (Auto) 0.4 x10^3/uL (0.0-1.1) 0.4 x10^3/uL (0.0-1.1) Eosinophils # (Auto) 0.1 x10^3/uL (0.0-0.7) 0.1 x10^3/uL (0.0-0.7) Basophils # (Auto) 0.1 x10^3/uL (0.0-0.2) 0.1 x10^3/uL (0.0-0.2) Sodium Level 144 mmol/L (136-145) Potassium Level 3.6 mmol/L (3.5-5.1) Chloride Level 109 mmol/L (98-107) Carbon Dioxide Level 21 mmol/L (21-32) Anion Gap 14 (6-14) Blood Urea Nitrogen 13 mg/dL (8-26) Creatinine 0.7 mg/dL (0.7-1.3) Estimated GFR (Cockcroft-Gault) 118.9 BUN/Creatinine Ratio 19 (6-20) Glucose Level 108 mg/dL (70-99) Calcium Level 7.9 mg/dL (8.5-10.1) Magnesium Level 1.6 mg/dL (1.8-2.4) 1.7 mg/dL (1.8-2.4) Total Bilirubin 0.4 mg/dL (0.2-1.0) Aspartate Amino Transf (AST/SGOT) 33 U/L (15-37) Alanine Aminotransferase (ALT/SGPT) 20 U/L (16-63) Alkaline Phosphatase 122 U/L (46-116) Total Protein 7.3 g/dL (6.4-8.2) Albumin 2.8 g/dL (3.4-5.0) Albumin/Globulin Ratio 0.6 (1.0-1.7) Lipase 1303 U/L (73-393) 750 U/L (73-393) 676 U/L (73-393) Ethyl Alcohol Level 400 mg/dL (0-10) < 10 mg/dL (0-10) Laboratory Tests Test 01/16/19 11:50 01/17/19 04:15 Hemoglobin 8.7 g/dL (13.0-17.5) 7.5 g/dL (13.0-17.5) Hematocrit 26.5 % (39.0-53.0) 22.6 % (39.0-53.0) Mean Corpuscular Hemoglobin Concent 33 g/dL (31-37) 33 g/dL (31-37) Lipase 750 U/L (73-393) 676 U/L (73-393) White Blood Count 2.6 x10^3/uL (4.0-11.0) Red Blood Count 2.47 x10^6/uL (4.30-5.70) Mean Corpuscular Volume 92 fL (79-100) Mean Corpuscular Hemoglobin 30 pg (25-35) Red Cell Distribution Width 17.1 % (11.5-14.5) Platelet Count 54 x10^3/uL (140-400) Neutrophils (%) (Auto) 55 % (31-73) Lymphocytes (%) (Auto) 24 % (24-48) Monocytes (%) (Auto) 15 % (0-9) Eosinophils (%) (Auto) 3 % (0-3) Basophils (%) (Auto) 3 % (0-3) Neutrophils # (Auto) 1.5 x10^3/uL (1.8-7.7) Lymphocytes # (Auto) 0.6 x10^3/uL (1.0-4.8) Monocytes # (Auto) 0.4 x10^3/uL (0.0-1.1) Eosinophils # (Auto) 0.1 x10^3/uL (0.0-0.7) Basophils # (Auto) 0.1 x10^3/uL (0.0-0.2) Magnesium Level 1.7 mg/dL (1.8-2.4) Ethyl Alcohol Level < 10 mg/dL (0-10) Medications Current Medications Ondansetron HCl (Zofran) 4 mg 1X ONCE IV Last administered on 01/15/19at 21:50; Start 01/15/19 at 21:15; Stop 01/15/19 at 21:16; Status DC Famotidine (Pepcid Vial) 20 mg 1X ONCE IVP Last administered on 01/15/19at 21:50; Start 01/15/19 at 21:15; Stop 01/15/19 at 21:16; Status DC Ketorolac Tromethamine (Toradol 30mg Vial) 15 mg 1X ONCE IV Last administered on 01/15/19at 21:51; Start 01/15/19 at 21:15; Stop 01/15/19 at 21:16; Status DC Sodium Chloride 1,000 ml @ 1,000 mls/hr 1X ONCE IV Last administered on 01/15/19at 21:49; Start 01/15/19 at 21:15; Stop 01/15/19 at 22:14; Status DC Multivitamins 10 ml/Thiamine HCl 100 mg/Folic Acid 1 mg/Sodium Chloride 1,011.2 ml @ 1,000.088 mls/hr 1X ONCE IV Last administered on 01/15/19at 22:10; Start 01/15/19 at 22:15; Stop 01/15/19 at 23:15; Status DC Ondansetron HCl (Zofran) 4 mg PRN Q8HRS PRN IV NAUSEA/VOMITING; Start 01/15/19 at 22:15; Stop 01/16/19 at 08:38; Status DC Fentanyl Citrate (Fentanyl 2ml Vial) 50 mcg PRN Q2HR PRN IV PAIN Last administered on 01/17/19at 08:58; Start 01/15/19 at 22:15 Sodium Chloride 1,000 ml @ 125 mls/hr Q8H IV Last administered on 01/16/19at 16:15; Start 01/15/19 at 22:15; Stop 01/16/19 at 22:14; Status DC Lorazepam (Ativan Inj) 1 mg PRN Q1HR PRN IV For CIWA 8-14 Last administered on 01/17/19at 08:58; Start 01/15/19 at 22:15 Lorazepam (Ativan Inj) 2 mg PRN Q1HR PRN IV For CIWA 15 or greater Last administered on 01/16/19at 20:39; Start 01/15/19 at 22:15 Ondansetron HCl (Zofran) 4 mg PRN Q6HRS PRN IV NAUSEA/VOMITING; Start 01/16/19 at 08:45 Pantoprazole Sodium (PROTONIX VIAL for IV PUSH) 40 mg DAILYAC IVP Last administered on 01/16/19at 10:46; Start 01/16/19 at 09:00; Stop 01/16/19 at 11:27; Status DC Magnesium Sulfate 50 ml @ 25 mls/hr 1X ONCE IV Last administered on 01/16/19at 10:46; Start 01/16/19 at 09:00; Stop 01/16/19 at 10:59; Status DC Labetalol HCl (Normodyne Iv Push) 10 mg PRN Q2HR PRN IVP HYPERTENSION; Start 01/16/19 at 08:45 Pantoprazole Sodium (PROTONIX VIAL for IV PUSH) 40 mg BIDAC IVP Last administered on 01/16/19at 16:14; Start 01/16/19 at 16:30; Stop 01/17/19 at 08:43; Status DC Sucralfate (Carafate) 1 gm QIDACHS PO Last administered on 01/17/19at 08:57; Start 01/16/19 at 11:30 Oxycodone/ Acetaminophen (Percocet 5/325) 1 tab PRN Q4HRS PRN PO PAIN; Start 01/17/19 at 08:45 Magnesium Sulfate 50 ml @ 25 mls/hr 1X ONCE IV Last administered on 01/17/19at 10:10; Start 01/17/19 at 10:00; Stop 01/17/19 at 11:59 Pantoprazole Sodium (Protonix) 40 mg BIDAC PO Last administered on 01/17/19at 10:09; Start 01/17/19 at 09:00 Vitals/I & O Vital Sign - Last 24 Hours 01/16/19 01/16/19 01/16/19 01/16/19 11:45 13:12 13:45 15:18 Temp 98.2 98.3 98.2 98.3 Pulse 66 66 Resp 18 19 19 18 B/P (MAP) 137/73 (94) 143/80 (101) Pulse Ox 98 98 96 96 O2 Delivery Room Air Room Air Room Air 01/16/19 01/16/19 01/16/19 01/16/19 19:46 20:00 20:40 23:18 Temp 98.6 99.3 98.6 99.3 Pulse 68 73 Resp 18 16 B/P (MAP) 151/74 (99) 140/75 (96) Pulse Ox 98 96 O2 Delivery Room Air Room Air Room Air Room Air 01/17/19 01/17/19 01/17/19 01/17/19 02:30 03:08 07:00 08:00 Temp 99.5 97.9 99.5 97.9 Pulse 70 62 Resp 16 18 B/P (MAP) 133/61 (85) 139/71 (93) Pulse Ox 96 97 O2 Delivery Room Air Room Air Room Air Room Air 01/17/19 01/17/19 08:58 09:45 Pulse Ox 97 O2 Delivery Room Air Room Air Intake and Output 01/16/19 01/16/19 01/17/19 14:59 22:59 06:59 Intake Total 0 ml 0 ml Output Total 400 ml 1000 ml Balance -400 ml 0 ml -1000 ml SOHAIL PASTRANA MD Jan 17, 2019 10:14
[2019-01-17 11:00] VITALS: BP 138/74
[2019-01-17 15:00] VITALS: BP 138/75
[2019-01-17 19:47] VITALS: BP 148/85
[2019-01-17] MEDS: oxyCODONE/APAP 5/325 1 TAB TABLET PO PRN (20:15)
[2019-01-17 22:51] VITALS: BP 144/79
[2019-01-18] MEDS: oxyCODONE/APAP 5/325 1 TAB TABLET PO PRN ×3 (01:43→20:25)
[2019-01-18 03:21] VITALS: BP 152/74
[2019-01-18 05:22] LABS: HEMATOCRIT 24.9 % (39.0-53.0); HEMOGLOBIN 8.4 g/dL (13.0-17.5)
[2019-01-18 07:37] VITALS: BP 159/73
[2019-01-18] MEDS: PANTOPRAZOLE 40 MG TABLET.DR. PO SCH ×2 (08:30→17:41)
[2019-01-18] MEDS: SUCRALFATE 1 GM TABLET. PO SCH ×4 (08:30→20:25)
[2019-01-18] MEDS ORDERED: hydrALAZINE 20 MG/ML VIAL. IVP PRN (09:15)
--- NOTE | 2019-01-18 09:52 | NUR ---
pt has been trying to leave all morning. he put on all his clothes and then took off his tele and patches. he stated he was leaving now. we told him that we needed the dr to see him before he can go home. he was still not very cooperative. we called security supervisor and security and they were going to come up and talk with him. but within 5 mins of talking to him we convinced him to stay and wait for dr. he was laying in his bed fully dressed. in the next few hours the pt has gotten up repeatedly to look for the exit. found him wandering the [place] looking for exit. he has numerous times urinated on himself thinking that he was using the urinal. when he is walking he is very unsteady and we have caught him before falling numerous times. Jesus Arreaga RN
[2019-01-18 11:00] VITALS: BP 172/88
[2019-01-18] MEDS ORDERED: HALOPERIDOL LACTATE 5 MG/ML VIAL. IVP PRN (11:30)
--- NOTE | 2019-01-18 11:33 | PDOC ---
PROGRESS NOTES Chief Complaint Chief Complaint Bright red blood per rectum History of massive GI bleeding stat EGD, stat IR 1-2 months ago here at [facility] Alcoholic liver disease Elevated alcohol levels 400s on admit Alcoholic pancreatitis with lipase 1303 on admit Hypomagnesemia 1.6 Chronic thrombocytopenia 50s-70s Hypocalcemia/normocalcemia in the background of low albumin met enceph HYpomagnesmia History of Present Illness History of Present Illness Lipase down to 600 from 1400 on admit Magnesium still 1.8 s/p 2 IV replacements Hemoglobin dropped 8 now no BRBPR reported to me today, but pt claims still going on? CONFUSED tODAY URINE EVERYWHERE Plan : replace magnesium again Watch out for bleeding Mag 2 g now and recheck tomorrow Okay for diet Check alcohol levels-was 400s 2 days ago now 0 HAldol PO and iV prn SItter OK to dc tele - wont wear October t.o Tele floor Check ammonia PT OT when able IF better tmr with stable labs and no bleeding, might be able to send home tmr Vitals Vitals Vital Signs Date Time Temp Pulse Resp B/P (MAP) Pulse Ox O2 Delivery O2 Flow Rate FiO2 01/18/19 09:34 96 Room Air 01/18/19 07:37 98.1 59 18 159/73 (101) 98.1 Physical Exam General: Alert, Oriented X3, Cooperative, No acute distress Heart: Regular rate, Normal S1, Normal S2 Lungs: Clear Abdomen: Normal bowel sounds, Soft, No tenderness, No hepatosplenomegaly, No masses Extremities: No clubbing, No cyanosis, No edema, Normal pulses, No tenderness/swelling Skin: No rashes, No breakdown, No significant lesion Labs LABS Laboratory Tests Test 01/18/19 04:40 Hemoglobin 8.4 g/dL (13.0-17.5) Hematocrit 24.9 % (39.0-53.0) Mean Corpuscular Hemoglobin Concent 34 g/dL (31-37) Magnesium Level 1.8 mg/dL (1.8-2.4) Lipase 649 U/L (73-393) Review of Systems Review of Systems Confused today hence limited ROS, admits to bright red blood per rectum but no nausea or emesis, or inc abd pain Assessment and Plan Assessmemt and Plan Problems Medical Problems: (1) Alcohol abuse Status: Acute Comment Review of Relevant I have reviewed the following items chayito (where applicable) has been applied. Labs Laboratory Tests Test 01/16/19 11:50 01/17/19 04:15 01/18/19 04:40 Hemoglobin 8.7 g/dL (13.0-17.5) 7.5 g/dL (13.0-17.5) 8.4 g/dL (13.0-17.5) Hematocrit 26.5 % (39.0-53.0) 22.6 % (39.0-53.0) 24.9 % (39.0-53.0) Mean Corpuscular Hemoglobin Concent 33 g/dL (31-37) 33 g/dL (31-37) 34 g/dL (31-37) Lipase 750 U/L (73-393) 676 U/L (73-393) 649 U/L (73-393) White Blood Count 2.6 x10^3/uL (4.0-11.0) Red Blood Count 2.47 x10^6/uL (4.30-5.70) Mean Corpuscular Volume 92 fL (79-100) Mean Corpuscular Hemoglobin 30 pg (25-35) Red Cell Distribution Width 17.1 % (11.5-14.5) Platelet Count 54 x10^3/uL (140-400) Neutrophils (%) (Auto) 55 % (31-73) Lymphocytes (%) (Auto) 24 % (24-48) Monocytes (%) (Auto) 15 % (0-9) Eosinophils (%) (Auto) 3 % (0-3) Basophils (%) (Auto) 3 % (0-3) Neutrophils # (Auto) 1.5 x10^3/uL (1.8-7.7) Lymphocytes # (Auto) 0.6 x10^3/uL (1.0-4.8) Monocytes # (Auto) 0.4 x10^3/uL (0.0-1.1) Eosinophils # (Auto) 0.1 x10^3/uL (0.0-0.7) Basophils # (Auto) 0.1 x10^3/uL (0.0-0.2) Magnesium Level 1.7 mg/dL (1.8-2.4) 1.8 mg/dL (1.8-2.4) Ethyl Alcohol Level < 10 mg/dL (0-10) Laboratory Tests Test 01/18/19 04:40 Hemoglobin 8.4 g/dL (13.0-17.5) Hematocrit 24.9 % (39.0-53.0) Mean Corpuscular Hemoglobin Concent 34 g/dL (31-37) Magnesium Level 1.8 mg/dL (1.8-2.4) Lipase 649 U/L (73-393) Medications Current Medications Ondansetron HCl (Zofran) 4 mg 1X ONCE IV Last administered on 01/15/19 21:50; Start 01/15/19 at 21:15; Stop 01/15/19 at 21:16; Status DC Famotidine (Pepcid Vial) 20 mg 1X ONCE IVP Last administered on 01/15/19at 21:50; Start 01/15/19 at 21:15; Stop 01/15/19 at 21:16; Status DC Ketorolac Tromethamine (Toradol 30mg Vial) 15 mg 1X ONCE IV Last administered on 01/15/19at 21:51; Start 01/15/19 at 21:15; Stop 01/15/19 at 21:16; Status DC Sodium Chloride 1,000 ml @ 1,000 mls/hr 1X ONCE IV Last administered on 01/15/19at 21:49; Start 01/15/19 at 21:15; Stop 01/15/19 at 22:14; Status DC Multivitamins 10 ml/Thiamine HCl 100 mg/Folic Acid 1 mg/Sodium Chloride 1,011.2 ml @ 1,000.088 mls/hr 1X ONCE IV Last administered on 01/15/19at 22:10; Start 01/15/19 at 22:15; Stop 01/15/19 at 23:15; Status DC Ondansetron HCl (Zofran) 4 mg PRN Q8HRS PRN IV NAUSEA/VOMITING; Start 01/15/19 at 22:15; Stop 01/16/19 at 08:38; Status DC Fentanyl Citrate (Fentanyl 2ml Vial) 50 mcg PRN Q2HR PRN IV PAIN Last administered on 01/17/19at 16:25; Start 01/15/19 at 22:15 Sodium Chloride 1,000 ml @ 125 mls/hr Q8H IV Last administered on 01/16/19 16:15; Start 01/15/19 at 22:15; Stop 01/16/19 at 22:14; Status DC Lorazepam (Ativan Inj) 1 mg PRN Q1HR PRN IV For CIWA 8-14 Last administered on 01/17/19at 22:45; Start 01/15/19 at 22:15 Lorazepam (Ativan Inj) 2 mg PRN Q1HR PRN IV For CIWA 15 or greater Last administered on 01/18/19at 08:31; Start 01/15/19 at 22:15 Ondansetron HCl (Zofran) 4 mg PRN Q6HRS PRN IV NAUSEA/VOMITING; Start 01/16/19 at 08:45 Pantoprazole Sodium (PROTONIX VIAL for IV PUSH) 40 mg DAILYAC IVP Last administered on 01/16/19 10:46; Start 01/16/19 at 09:00; Stop 01/16/19 at 11:27; Status DC Magnesium Sulfate 50 ml @ 25 mls/hr 1X ONCE IV Last administered on 01/16/19at 10:46; Start 01/16/19 at 09:00; Stop 01/16/19 at 10:59; Status DC Labetalol HCl (Normodyne Iv Push) 10 mg PRN Q2HR PRN IVP HYPERTENSION; Start 01/16/19 at 08:45 Pantoprazole Sodium (PROTONIX VIAL for IV PUSH) 40 mg BIDAC IVP Last administered on 01/16/19at 16:14; Start 01/16/19 at 16:30; Stop 01/17/19 at 08:43; Status DC Sucralfate (Carafate) 1 gm QIDACHS PO Last administered on 01/18/19 08:30; Start 01/16/19 at 11:30 Oxycodone/ Acetaminophen (Percocet 5/325) 1 tab PRN Q4HRS PRN PO PAIN Last administered on 01/18/19 08:30; Start 01/17/19 at 08:45 Magnesium Sulfate 50 ml @ 25 mls/hr 1X ONCE IV Last administered on 01/17/19at 10:10; Start 01/17/19 at 10:00; Stop 01/17/19 at 11:59; Status DC Pantoprazole Sodium (Protonix) 40 mg BIDAC PO Last administered on 01/18/19at 08:30; Start 01/17/19 at 09:00 Hydralazine HCl (Apresoline Inj) 10 mg PRN Q4HRS PRN IVP ELEVATED BP, SEE COMMENTS; Start 01/18/19 at 09:15 Vitals/I & O Vital Sign - Last 24 Hours 01/17/19 01/17/19 01/17/19 01/17/19 11:51 15:00 16:25 16:58 Temp 99.0 99.0 Pulse 64 Resp 18 B/P (MAP) 138/75 (96) Pulse Ox 97 97 97 O2 Delivery Room Air Room Air Room Air Room Air 01/17/19 01/17/19 01/17/19 01/17/19 19:47 20:15 22:30 22:51 Temp 98.3 98.1 98.3 98.1 Pulse 65 62 Resp 18 18 B/P (MAP) 148/85 (106) 144/79 (100) Pulse Ox 98 98 O2 Delivery Room Air Room Air Room Air Room Air 01/18/19 01/18/19 01/18/19 01/18/19 01:43 03:21 07:37 08:30 Temp 98.3 98.1 98.3 98.1 Pulse 58 59 Resp 16 18 18 B/P (MAP) 152/74 (100) 159/73 (101) Pulse Ox 98 97 96 96 O2 Delivery Room Air Room Air Room Air Room Air 01/18/19 09:34 Pulse Ox 96 O2 Delivery Room Air Intake and Output 01/17/19 01/17/19 01/18/19 14:59 22:59 06:59 Intake Total 200 ml 100 ml Output Total 400 ml 1350 ml Balance -200 ml -1250 ml SOHAIL PASTRANA MD Jan 18, 2019 11:33
[2019-01-18] MEDS ORDERED: HALOPERIDOL 2 MG/ML ORAL.CONC. PO PRN (11:45)
[2019-01-18] MEDS: fentaNYL PF VIAL 100 MCG/2 ML VIAL IV PRN (11:46)
[2019-01-18 15:58] VITALS: BP 134/75
[2019-01-18 19:00] VITALS: BP 137/67
[2019-01-18] MEDS: LACTULOSE 20 GM/30 ML SOLUTION. PO SCH (20:34)
[2019-01-18 23:02] VITALS: BP 126/70
[2019-01-19] MEDS: fentaNYL PF VIAL 100 MCG/2 ML VIAL IV PRN ×2 (00:16→04:54)
[2019-01-19] MEDS: oxyCODONE/APAP 5/325 1 TAB TABLET PO PRN ×5 (01:05→22:58)
[2019-01-19 04:07] VITALS: BP 138/72
[2019-01-19] MEDS: PANTOPRAZOLE 40 MG TABLET.DR. PO SCH ×2 (05:30→16:13)
[2019-01-19] MEDS: SUCRALFATE 1 GM TABLET. PO SCH ×4 (05:31→21:06)
[2019-01-19 07:00] VITALS: BP 126/68
[2019-01-19] MEDS: LACTULOSE 20 GM/30 ML SOLUTION. PO SCH ×2 (08:15→21:06)
--- NOTE | 2019-01-19 09:53 | PDOC ---
PROGRESS NOTES Chief Complaint Chief Complaint Elevated NH4 Encephalopathy Bright red blood per rectum, no recurrence History of massive GI bleeding stat EGD, stat IR 1-2 months ago here at [facility] Alcoholic liver disease Elevated alcohol levels 400s on admit Alcoholic pancreatitis with lipase 1303 on admit Hypomagnesemia 1.6, corrected Chronic thrombocytopenia 50s-70s Hypocalcemia/normocalcemia in the background of low albumin met enceph History of Present Illness History of Present Illness COnfused but calm sitter at bedside NH4 elevated so started on lactulose and has had 2 BM CAlm but still not at baseline Hgb stable Hypomag corrected NO more BRBPR PLAn: Add pt/ot RE check ammonia COnt lactulose, PPI , carafate Keep sitter for now pending nh4 if MS back to baseline despite ammonia levels, i can dc if GAIT steady dw sitter and RN divya Vitals Vitals Vital Signs Date Time Temp Pulse Resp B/P (MAP) Pulse Ox O2 Delivery O2 Flow Rate FiO2 01/19/19 08:00 Room Air 01/19/19 07:35 16 01/19/19 07:00 98.7 87 126/68 (87) 96 98.7 Physical Exam General: Alert, Oriented X3, Cooperative, No acute distress Heart: Regular rate, Normal S1, Normal S2 Lungs: Clear Abdomen: Normal bowel sounds, Soft, No tenderness, No hepatosplenomegaly, No masses Extremities: No clubbing, No cyanosis, No edema, Normal pulses, No tenderness/swelling Skin: No rashes, No breakdown, No significant lesion Labs LABS Laboratory Tests Test 01/18/19 12:00 Ammonia 62 mcmol/L (11-34) Review of Systems Review of Systems some confusion hence limited ROS Assessment and Plan Assessmemt and Plan Problems Medical Problems: (1) Alcohol abuse Status: Acute Comment Review of Relevant I have reviewed the following items chayito (where applicable) has been applied. Labs Laboratory Tests Test 01/18/19 04:40 01/18/19 12:00 Hemoglobin 8.4 g/dL (13.0-17.5) Hematocrit 24.9 % (39.0-53.0) Mean Corpuscular Hemoglobin Concent 34 g/dL (31-37) Magnesium Level 1.8 mg/dL (1.8-2.4) Lipase 649 U/L (73-393) Ammonia 62 mcmol/L (11-34) Laboratory Tests Test 01/18/19 12:00 Ammonia 62 mcmol/L (11-34) Medications Current Medications Ondansetron HCl (Zofran) 4 mg 1X ONCE IV Last administered on 01/15/19 21:50; Start 01/15/19 at 21:15; Stop 01/15/19 at 21:16; Status DC Famotidine (Pepcid Vial) 20 mg 1X ONCE IVP Last administered on 01/15/19at 21:50; Start 01/15/19 at 21:15; Stop 01/15/19 at 21:16; Status DC Ketorolac Tromethamine (Toradol 30mg Vial) 15 mg 1X ONCE IV Last administered on 01/15/19at 21:51; Start 01/15/19 at 21:15; Stop 01/15/19 at 21:16; Status DC Sodium Chloride 1,000 ml @ 1,000 mls/hr 1X ONCE IV Last administered on 01/15/19at 21:49; Start 01/15/19 at 21:15; Stop 01/15/19 at 22:14; Status DC Multivitamins 10 ml/Thiamine HCl 100 mg/Folic Acid 1 mg/Sodium Chloride 1,011.2 ml @ 1,000.088 mls/hr 1X ONCE IV Last administered on 01/15/19at 22:10; Start 01/15/19 at 22:15; Stop 01/15/19 at 23:15; Status DC Ondansetron HCl (Zofran) 4 mg PRN Q8HRS PRN IV NAUSEA/VOMITING; Start 01/15/19 at 22:15; Stop 01/16/19 at 08:38; Status DC Fentanyl Citrate (Fentanyl 2ml Vial) 50 mcg PRN Q2HR PRN IV PAIN Last administered on 01/19/19at 04:54; Start 01/15/19 at 22:15 Sodium Chloride 1,000 ml @ 125 mls/hr Q8H IV Last administered on 01/16/19at 16:15; Start 01/15/19 at 22:15; Stop 01/16/19 at 22:14; Status DC Lorazepam (Ativan Inj) 1 mg PRN Q1HR PRN IV For CIWA 8-14 Last administered on 01/19/19at 05:01; Start 01/15/19 at 22:15 Lorazepam (Ativan Inj) 2 mg PRN Q1HR PRN IV For CIWA 15 or greater Last administered on 01/19/19at 00:15; Start 01/15/19 at 22:15 Ondansetron HCl (Zofran) 4 mg PRN Q6HRS PRN IV NAUSEA/VOMITING; Start 01/16/19 at 08:45 Pantoprazole Sodium (PROTONIX VIAL for IV PUSH) 40 mg DAILYAC IVP Last administered on 01/16/19at 10:46; Start 01/16/19 at 09:00; Stop 01/16/19 at 11:27; Status DC Magnesium Sulfate 50 ml @ 25 mls/hr 1X ONCE IV Last administered on 01/16/19at 10:46; Start 01/16/19 at 09:00; Stop 01/16/19 at 10:59; Status DC Labetalol HCl (Normodyne Iv Push) 10 mg PRN Q2HR PRN IVP HYPERTENSION; Start 01/16/19 at 08:45 Pantoprazole Sodium (PROTONIX VIAL for IV PUSH) 40 mg BIDAC IVP Last administered on 01/16/19at 16:14; Start 01/16/19 at 16:30; Stop 01/17/19 at 08:43; Status DC Sucralfate (Carafate) 1 gm QIDACHS PO Last administered on 01/19/19at 05:31; Start 01/16/19 at 11:30 Oxycodone/ Acetaminophen (Percocet 5/325) 1 tab PRN Q4HRS PRN PO PAIN Last ad ministered on 01/19/19at 06:35; Start 01/17/19 at 08:45 Magnesium Sulfate 50 ml @ 25 mls/hr 1X ONCE IV Last administered on 01/17/19at 10:10; Start 01/17/19 at 10:00; Stop 01/17/19 at 11:59; Status DC Pantoprazole Sodium (Protonix) 40 mg BIDAC PO Last administered on 01/19/19at 05:30; Start 01/17/19 at 09:00 Hydralazine HCl (Apresoline Inj) 10 mg PRN Q4HRS PRN IVP ELEVATED BP, SEE COMMENTS; Start 01/18/19 at 09:15 Haloperidol Lactate (HALDOL 2mg ORAL CONC) 2 mg PRN QID PRN PO AGITATION; Start 01/18/19 at 11:45 Haloperidol Lactate (Haldol Inj) 5 mg PRN Q6HRS PRN IVP AGITATION Last administered on 01/18/19at 11:47; Start 01/18/19 at 11:30 Lactulose (Lactulose) 30 gm BID PO Last administered on 01/19/19at 08:15; Start 01/18/19 at 21:00 Vitals/I & O Vital Sign - Last 24 Hours 01/18/19 01/18/19 01/18/19 01/18/19 11:00 11:46 15:58 19:00 Temp 97.6 97.3 98.0 97.6 97.3 98.0 Pulse 75 88 77 Resp 20 18 20 B/P (MAP) 172/88 (116) 134/75 (94) 137/67 (90) Pulse Ox 99 96 96 97 O2 Delivery Room Air Room Air Room Air Room Air 01/18/19 01/18/19 01/18/19 01/19/19 20:00 20:25 23:02 00:16 Temp 98.9 98.9 Pulse 81 Resp 18 18 B/P (MAP) 126/70 (88) Pulse Ox 97 97 97 O2 Delivery Room Air Room Air Room Air Room Air 01/19/19 01/19/19 01/19/19 01/19/19 01:05 04:07 04:54 05:30 Temp 98.5 98.5 Pulse 81 Resp 18 18 18 18 B/P (MAP) 138/72 (94) Pulse Ox 97 95 95 95 O2 Delivery Room Air Room Air Room Air Room Air 01/19/19 01/19/19 01/19/19 01/19/19 06:35 07:00 07:35 08:00 Temp 98.7 98.7 Pulse 87 Resp 18 20 16 B/P (MAP) 126/68 (87) Pulse Ox 95 96 O2 Delivery Room Air Room Air Room Air Room Air Intake and Output 01/18/19 01/18/19 01/19/19 14:59 22:59 06:59 Intake Total 720 ml Output Total 2000 ml Balance -1280 ml SOHAIL PASTRANA MD Jan 19, 2019 09:53
[2019-01-19 11:00] VITALS: BP 148/85
--- NOTE | 2019-01-19 15:06 | NUR ---
JONNATHAN following pt for dc needs. Chart reviewed and pt lives at home with family. JONNATHAN phoned PAT team for community resource referral. Sheldon will come to see pt today. Discussed with RN.
[2019-01-19 15:09] VITALS: BP 137/72
--- NOTE | 2019-01-19 16:04 | NUR ---
SW following pt. Pt spoke with Sheldon and does not believe he has drinking problems. Pt agreeable to follow up with [facility] upon dc. Pt is provided with resources.
[2019-01-19 19:00] VITALS: BP 150/75
[2019-01-19 22:51] VITALS: BP 146/83
[2019-01-20 03:00] VITALS: BP 128/63
[2019-01-20] MEDS: oxyCODONE/APAP 5/325 1 TAB TABLET PO PRN ×3 (03:34→15:39)
[2019-01-20] MEDS: PANTOPRAZOLE 40 MG TABLET.DR. PO SCH ×2 (05:32→18:12)
[2019-01-20] MEDS: SUCRALFATE 1 GM TABLET. PO SCH ×3 (05:32→18:12)
[2019-01-20 07:00] VITALS: BP 143/71
[2019-01-20] MEDS ORDERED: CHLO1CAP PO (10:17)
[2019-01-20] MEDS ORDERED: PANT40TA77 PO (10:17)
[2019-01-20] MEDS ORDERED: SUCR1TAB35 PO (10:17)
[2019-01-20] MEDS ORDERED: LACT20SO PO (10:18)
--- NOTE | 2019-01-20 10:20 | PDOC3 ---
Discharge Summary Visit Information Date of Admission: Jan 15, 2019 Date of Discharge: Jan 20, 2019 Admitting Diagnosis Comment: Elevated NH4 Encephalopathy Bright red blood per rectum, no recurrence History of massive GI bleeding stat EGD, stat IR 1-2 months ago here at [facility] Alcoholic liver disease Elevated alcohol levels 400s on admit Alcoholic pancreatitis with lipase 1303 on admit Hypomagnesemia 1.6, corrected Chronic thrombocytopenia 50s-70s Hypocalcemia/normocalcemia in the background of low albumin met [facility] Final Diagnosis Problems Medical Problems: (1) Alcohol abuse Status: Acute Brief Hospital Course Allergies Allergies Coded Allergies Type Severity Reaction Last Updated Verified No Known Drug Allergies 01/15/19 No Vital Signs Vital Signs Date Time Temp Pulse Resp B/P (MAP) Pulse Ox O2 Delivery O2 Flow Rate FiO2 01/20/19 08:03 20 Room Air 01/20/19 07:00 98.3 70 143/71 (95) 97 98.3 Lab Results Laboratory Tests Test 01/18/19 12:00 01/19/19 09:05 Ammonia 62 mcmol/L (11-34) Lipase 374 U/L (73-393) Brief Hospital Course Mr. Anderson is a 53 old admitted for alcoholic pancreatitis. History of GI bleed needing stat IR EGD etc in few mos ago admission.Supposed to be on PPI and Carafate I'm unsure if he's taking. Had some minor rectal bleed this admit but hemodynamically stable. Course remarkable for some encephalopathy and maybe S I hence PAT was consulted. Most likely will be cleared from PAT team Had some encephalopathy - high ammonia 60s, given lactulose and seems to be better Gait unsteady initially but as the day progressed getting better high chance/incidence of readmission Counseling alcohol cessation again with sitter one-to-one at bedside as my witness Discharge Information Condition at Discharge: Improved, Stable Disposition/Orders: D/C to Home Scheduled Chlordiazepoxide/Clidinium Br (Librax Capsule) 1 Each Capsule, 1 CAP PO TID for alcohol, #60 Ref 3 Prescribed by: SOHAIL PASTRANA on 01/20/19 1017 Lactulose (Lactulose) 20 Gm/30 Ml Solution, 30 GM PO BID for high ammonia for 3 Days Prescribed by: SOHAIL PASTRANA on 01/20/19 1018 Pantoprazole Sodium (Pantoprazole Sodium ) 40 Mg Tablet.dr, 40 MG PO BIDAC for gi bleed, #60 Prescribed by: SOHAIL PASTRANA on 01/20/19 1017 Sucralfate (Carafate) 1 Gm Tablet, 1 GM PO QIDACHS for gi bleed, #90 Prescribed by: SOHAIL PASTRANA on 01/20/19 1017 SOHAIL PASTRANA MD Jan 20, 2019 10:20
[2019-01-20] MEDS: LACTULOSE 20 GM/30 ML SOLUTION. PO SCH (10:40)
[2019-01-20 11:00] VITALS: BP 145/87
--- NOTE | 2019-01-20 12:16 | PDOC ---
G I PROGRESS NOTE Subjective No complaints. Wants to go home. Objective Missed him yesterday; walked by old room and thought had been dismissed. Physical Exam Lungs clear. RRR Abdomen soft, not tender nor distended. Review of Relevant I have reviewed the following items chayito (where applicable) has been applied. Labs Laboratory Tests Test 01/19/19 09:05 01/20/19 09:40 Lipase 374 U/L (73-393) Ammonia 52 mcmol/L (11-34) Laboratory Tests Test 01/20/19 09:40 Ammonia 52 mcmol/L (11-34) Vitals/I & O Vital Sign - Last 24 Hours 01/19/19 01/19/19 01/19/19 01/19/19 13:58 15:09 18:14 19:00 Temp 98.5 97.9 98.5 97.9 Pulse 76 71 Resp 18 18 18 18 B/P (MAP) 137/72 (93) 150/75 (100) Pulse Ox 96 98 O2 Delivery Room Air Room Air Room Air 01/19/19 01/19/19 01/19/19 01/20/19 20:00 22:51 22:58 03:00 Temp 97.6 97.8 97.6 97.8 Pulse 70 75 Resp 18 18 18 B/P (MAP) 146/83 (104) 128/63 (84) Pulse Ox 97 97 96 O2 Delivery Room Air Room Air Room Air Room Air 01/20/19 01/20/19 01/20/19 01/20/19 03:34 07:00 08:03 09:03 Temp 98.3 98.3 Pulse 70 Resp 18 18 20 18 B/P (MAP) 143/71 (95) Pulse Ox 96 97 97 O2 Delivery Room Air Room Air Room Air Room Air 01/20/19 11:00 Temp 97.8 97.8 Pulse 94 Resp 20 B/P (MAP) 145/87 (106) Pulse Ox 98 O2 Delivery Room Air Intake and Output 01/19/19 01/19/19 01/20/19 14:59 22:59 06:59 Intake Total 760 ml 740 ml 500 ml Output Total 700 ml 1000 ml Balance 760 ml 40 ml -500 ml Problem List Problems Medical Problems: (1) Alcohol abuse Status: Acute Assessment Chronic alcohol abuse, Associated liver and pancreatic disease. Continues to drink; admonished once again to stop. Plan of Care Note No objections to discharge. Suspect will return. JEFF DEGROOT MD Jan 20, 2019 12:15
--- NOTE | 2019-01-20 14:22 | NUR ---
JONNATHAN phoned PAT team for assessment and eval for SI. Sheldon will come in to see pt. Addendum: 01/20/19 at 1514 by JONATHAN DE SANTIAGO SW following pt. Pt seen by Sheldon and denies SI. Pt states he reported about wanting to due to pain and not SI. Pt agreeable to follow up with [facility] and [facility]. Discussed with RN.
[2019-01-20] MEDS ORDERED: CITA10TA8 PO (14:34)
[2019-01-20] MEDS ORDERED: CITALOPRAM 10 MG TABLET. PO SCH (14:45)
[2019-01-20 15:00] VITALS: BP 167/95
--- NOTE | 2019-01-20 16:11 | NUR ---
SW following pt. Pt states he has his caicedo to his home but does not have anyone to pick him up. SW attempted to reach pt's cousin, Bo, and left a message. JONNATHAN arranged transport via [employer] between [phone]. Discussed with ARYAN.
== END 2019-01-20 18:30 | disposition home or self-care (01) | DRG 378 ==
LOC: ER 20:26 → 6 SOUTH 22:00 → 5 NORTH 01-18 22:21
PROVIDERS: ADMIT Family Medicine; ATTEND Family Medicine
DX: K62.5 Hemorrhage of anus and rectum (principal); G93.40 Encephalopathy, unspecified; K86.0 Alcohol-induced chronic pancreatitis; F10.10 Alcohol abuse, uncomplicated; K21.9 Gastro-esophageal reflux disease without esophagitis; K70.9 Alcoholic liver disease, unspecified; E83.42 Hypomagnesemia; D69.6 Thrombocytopenia, unspecified; E83.51 Hypocalcemia
CPT/HCPCS: 36415; 80053; 80307; 81001; 82140; 83690; 83735; 85014; 85018; 85025; 93005; 96361; 96365; 96375; C9113; G0480; J1630; J1885; J2060; J2405; J3010; J3475; J3490; J7030; 97116; 97530; 97535; 99285-25

== ENCOUNTER 2019-02-02 19:46 | Emergency (ER) | payer SELFPAY ==
[~2019-02-02] VITALS: Ht 177.8 cm; Wt 75.3 kg
[~2019-02-02 19:46] MED LIST: CHLO1CAP PO; CITA10TA8 PO; LACT20SO PO; PANT40TA77 PO; SUCR1TAB35 PO
[2019-02-02 21:31] VITALS: BP 171/87
--- NOTE | 2019-02-02 22:18 | PHYS DOC ---
Past Medical History Past Medical History: Pancreatitis Past Surgical History: Other Additional Past Surgical Histo: LEFT KNEE SURGERY Alcohol Use: Heavy Drug Use: None Adult General Chief Complaint Chief Complaint: KNEE SWELLING HPI HPI Patient is a 53 year old male who presents with right knee pain times one month. Patient states he fell off a horse month ago. Patient is able to walk with full weight on the affected leg. Knee has intact range of motion. Patient states that the knee will hurt and send tingling and down his leg into his toes. Patient states he gets sharp throbbing pain in his knee that he rates at 10 out of 10. Patient is homeless. There is 1+ edema to the knee compared to the right knee. Review of Systems Review of Systems Constitutional: Denies fever or chills [] Eyes: Denies change in visual acuity, redness, or eye pain [] HENT: Denies nasal congestion or sore throat [] Respiratory: Denies cough or shortness of breath [] Cardiovascular: No additional information not addressed in HPI [] GI: Denies abdominal pain, nausea, vomiting, bloody stools or diarrhea [] : Denies dysuria or hematuria [] Musculoskeletal: Denies back pain. Right knee joint pain [] Integument: Denies rash or skin lesions [] Neurologic: Denies headache, focal weakness or sensory changes [] Endocrine: Denies polyuria or polydipsia [] All other systems were reviewed and found to be within normal limits, except as documented in this note. Allergies Allergies Allergies Coded Allergies Type Severity Reaction Last Updated Verified No Known Drug Allergies 01/15/19 No Physical Exam Physical Exam Constitutional: Well developed, well nourished, no acute distress, non-toxic appearance. [] HENT: Normocephalic, atraumatic, bilateral external ears normal, oropharynx moist, no oral exudates, nose normal. [] Eyes: PERRLA, EOMI, conjunctiva normal, no discharge. [] Neck: Normal range of motion, no tenderness, supple, no stridor. [] Cardiovascular:Heart rate regular rhythm, no murmur [] Lungs & Thorax: Bilateral breath sounds clear to auscultation [] Abdomen: Bowel sounds normal, soft, no tenderness, no masses, no pulsatile masses. [] Skin: Warm, dry, no erythema, no rash. [] Back: No tenderness, no CVA tenderness. [] Extremities: No tenderness, no cyanosis, no clubbing, ROM intact, right knee 1+ edema. [] Neurologic: Alert and oriented X 3, normal motor function, normal sensory function, no focal deficits noted. [] Psychologic: Affect normal, judgement normal, mood normal. [] Current Patient Data Vital Signs Vital Signs Date Time Temp Pulse Resp B/P (MAP) Pulse Ox O2 Delivery O2 Flow Rate FiO2 02/02/19 21:31 97.7 71 16 171/87 (115) 97 Room Air 97.7 EKG EKG [] Radiology/Procedures Radiology/Procedures [] Course & Med Decision Making Course & Med Decision Making Patient is a 53 year old male who presents with right knee pain times one month. Patient states he fell off a horse month ago. Patient is able to walk with full weight on the affected leg. Knee has intact range of motion. Patient states that the knee will hurt and send tingling and down his leg into his toes. Patient states he gets sharp throbbing pain in his knee that he rates at 10 out of 10. Patient is homeless. There is 1+ edema to the knee compared to the right knee. Ambulatory with a steady gait. Speaks in full clear sentences. Skin is pink warm and dry. The skin is darker in color to the right patella compared to the left patella. There is no redness. There are no signs of infection and no pain with palpation to the knee. Denies calf pain. Popliteal pulse present and strong. No signs are within normal limits. There is no bruising or deformity to the knee. Dr Moses read Knee xray as a avulsion fx. Since this injury happened 1 month ago patient is put in a knee immobilizer and is to follow up with podiatry. Kathe Disclaimer Dragon Disclaimer This electronic medical record was generated, in whole or in part, using a voice recognition dictation system. Departure Departure Impression: Primary Impression: Avulsion fracture of bone Disposition: HOME, SELF-CARE Condition: STABLE Referrals: NO PCP (PCP) TYRESE PAUL II, MD Patient Instructions: Avulsion Fracture Additional Instructions: Follow up with podiatry as soon as possible. Scripts Hydrocodone/Apap 5-325 (NORCO 5-325 TABLET) 1 Each Tablet 1 TAB PO PRN Q6HRS PRN for PAIN, #8 TAB 0 Refills Prov: JAIDEN PIRES APRN 02/02/19 JAIDEN PIRES APRN Feb 02, 2019 22:18
[2019-02-02] MEDS ORDERED: HYDR-3164 PO (23:05)
--- NOTE | 2019-02-03 00:17 | RAD ---
4 view right knee dated 02/02/2019. No comparison available. Clinical data indication: Right knee pain and swelling for one month. FINDINGS: 4 views of the right knee show normal bony alignment. No displaced fracture. There is a curvilinear bone fragment extending from the medial femoral epicondyles. Diffuse soft tissue swelling. Small joint effusion. No apparent loose body. IMPRESSION: 1. Curvilinear fragment of bone along the medial femoral epicondyle consistent with age indeterminate avulsion. Consider injury to the medial collateral ligament complex. 2. Small joint effusion. MRI could better evaluate for internal derangement. 3. Diffuse soft tissue swelling. Electronically signed by: Kishan Baer MD (02/03/2019 12:14 AM) [id number]
== END 2019-02-02 23:30 | disposition home or self-care (01) ==
LOC: ER 19:46
DX: S82.091A Other fracture of right patella, initial encounter for closed fracture (principal); F10.20 Alcohol dependence, uncomplicated; Y90.9 Presence of alcohol in blood, level not specified; V80.010A Animal-rider injured by fall from or being thrown from horse in noncollision accident, initial encounter; Y93.89 Activity, other specified; Y92.89 Other specified places as the place of occurrence of the external cause; Y99.8 Other external cause status
CPT/HCPCS: 73564; 99284

== ENCOUNTER 2020-07-26 19:33 | Emergency (ER) | payer SELFPAY ==
[~2020-07-26] VITALS: Ht 177.8 cm; Wt 75.0 kg
[~2020-07-26 19:33] MED LIST changes: +FOLI1TAB16 PO; +HYDR-3164 PO; +MULT1TAB90 PO; +OXYC5TAB4 PO; +THIA100T22 PO
[2020-07-26] MEDS ORDERED: NAPROXEN 500 MG TABLET PO STA (20:17)
--- NOTE | 2020-07-26 21:18 | RAD ---
INDICATION: Reason: bilateral knee pain / Spl. Instructions: / History: COMPARISON: January 2019 and June 2020 IMPRESSION: Right knee: 3 views obtained. Osseous excrescence off of the medial aspect of the distal femur or vickie cification adjacent soft tissues. This was also present on prior. There is some edema of the soft tis sues. Mild degenerative changes. Edema at Hoffa's fat pad. Calcific atherosclerosis. Repeat demonstra tion of lucency at the posterior aspect of the tibial plateau. If the patient has pain at this site a subacute fracture could have this appearance. There is also an adjacent calcification within the sof t tissues which could be from a small fracture fragment. Left knee: 3 views obtained. Postoperative changes status post anterior cruciate ligament repair. Deg enerative changes throughout the knee. Calcific atherosclerosis. Edema of Hoffa's fat pad as well as prepatellar edema. There is some irregularity of the lateral tibial plateau. Could be related to dege nerative changes but if the patient had trauma to this site an impaction fracture of unknown age can have this appearance. Electronically signed by: Andre Hinds MD (07/26/2020 9:15 PM) [id number]
[2020-07-26] MEDS ORDERED: NAPR-514 PO (21:38)
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
[2020-07-26 21:45] VITALS: BP 137/84
== END 2020-07-26 21:45 | disposition home or self-care (01) ==
LOC: ER 19:33
DX: M25.561 Pain in right knee (principal); M25.562 Pain in left knee; R60.0 Localized edema; M19.90 Unspecified osteoarthritis, unspecified site; F10.10 Alcohol abuse, uncomplicated; K86.1 Other chronic pancreatitis; Z98.890 Other specified postprocedural states
CPT/HCPCS: 73562; 99283